=== PATIENT | female | born 1955 | race Asian ===

== ENCOUNTER 2017-03-10 23:29 | Inpatient (IN) | payer BC ==
[~2017-03-10] VITALS: Ht 152.4 cm; Wt 54.9 kg
--- NOTE | ~2017-03-10 | ER ---
PATIENT'S NAME: [facility] AGE: 61 Y [address] ROOM: [place] [address] LOCATION: [facility] ADMIT DATE: 03/10/2017 ER/Outpatient Report DISCHARGE DATE: FAMILY PHYSICIAN: Physician, Unknown ATTENDING PHYSICIAN: Scott Knox Admission date and time documented on the medical record. I saw the patient at 2335 hours. CHIEF COMPLAINT: Shortness of breath, nausea, vomiting, poorly responsive. HISTORY OF PRESENT ILLNESS: This patient is a 61-year-old female who was brought to the emergency room by physics technical officer car, was unresponsive on arrival. Questionable whether she had lost her respirations. Her O2 sats initially were 89, but came up to the mid 90s on room air. Blood pressure was stable at 155/62, her pulse was in the low 70s. She was breathing easily, having no respiratory distress. According to the person who brought her in is that she went to the bathroom, had an episode of nausea, vomiting, and became short of breath and poorly responsive and then was just brought in to the emergency department for evaluation. The patient just got back from [facility]. She had about a 15-hour plane ride. She had no problems through the day until this evening. No recent coughs, colds, flu, fever, chills, or sweats. The patient does have a history of systemic lupus, fibromyalgia. No history of CVA, TIA, seizure disorder, or any neurological changes. No endocrine problems. No known psych issues. No history of suicidal ideation or suicide attempts. No history of overdose. Unable to get much information from the patient, although she did say that she had lupus. She did open her eyes, did wiggle her toes, move her legs, move both arms, squeeze my finger with both hands, so she followed commands. Answered some questions. Very lethargic. HOME MEDICATIONS: See attached medication list. ALLERGIES: SULFA. SOCIAL HISTORY: Nonsmoker, nondrinker. SIGNIFICANT PAST MEDICAL HISTORY: Fibromyalgia, lupus. OPERATIONS: [facility] 61 Y [address] ROOM: [place] [address] LOCATION: ED ADMIT DATE: 03/10/2017 ER/Outpatient Report DISCHARGE DATE: FAMILY PHYSICIAN: Physician, Unknown ATTENDING PHYSICIAN: Scott Knox Unknown. REVIEW OF SYSTEMS: Unable to get review of systems from the patient because of her poor responsiveness. PHYSICAL EXAMINATION: VITAL SIGNS: Temperature 96.9, tympanic, pulse 71, respirations 10, blood pressure 155/62, O2 saturation on room air is 89% to 95%. HEENT: Head: Normocephalic. No abrasion, contusion, laceration, swelling of the scalp or face. Eyes: Pupils are equal, reactive. Not glazed over. Bright when you open her eyelids and looks like she is actually seeing you when you look into her eyes. Ears: Clear TMs bilaterally. Nose: Clear. Throat: Clear. NECK: Negative. LUNGS: Clear. HEART: Regular. ABDOMEN: Soft. I did not elicit any tenderness to palpation. Bowel tones were active. No organomegaly or abnormal mass palpable. No CVA tenderness. EXTREMITIES: Without peripheral edema, cyanosis, or deformity. NEURO: The patient does awaken to stimuli. Does follow commands. No lateralizing changes or deficits. Very lethargic. Does not appear to be toxic. SKIN: Clear. EMERGENCY DEPARTMENT COURSE: I did start the patient on IV normal saline, fluids. Did give her Zofran for nausea. The patient did have several episodes of nausea with vomiting. LABORATORY DATA: Urinalysis was negative. Urine drug screen was positive for THC, marijuana. EKG showed sinus rhythm. No acute ST elevation, ischemic change, or arrhythmia. Medical blood alcohol is less than 0.01. Acetaminophen, salicylate serum levels were both normal. White count was 9400, 45 segs, 45 lymphocytes, 8 monos, 2 eos. Hemoglobin was 12.8, hematocrit 38.5, platelet count is 169,000. Sed rate is normal at 16. PTT was 24. Pro-time is 11 with an INR 1.05. Procalcitonin was less than 0.05. Lactate was 1.9. Arterial blood gases on room air showed a pH of 7.31, pCO2 of 50, PO2 of 84, with an O2 saturation of 95%. D-dimer was elevated at 1.35. Magnesium was 1.8. CPK was 61. Ffnhi-fh-pfxn cardiac enzymes were normal. CRP was less than 0.29. Thyroid tests were normal. ProBNP was 232. CMS was normal except for a low potassium of 3.1. Elevated glucose at 205. PATIENT'S NAME: LAVERN DUPREE [facility] AGE: 61 Y [address] ROOM: [place], [place] [address] LOCATION: [facility] ADMIT DATE: 03/10/2017 ER/Outpatient Report DISCHARGE DATE: FAMILY PHYSICIAN: Physician, Unknown ATTENDING PHYSICIAN: Scott Knox Chest x-ray showed no acute infiltrate or changes. Did do a CT scan of the chest with PE protocol because of an elevated D-dimer. There was no evidence of pulmonary emboli. IMPRESSION: 1. Extreme lethargy, poor responsiveness, altered mental status. Etiology undetermined. 2. Nausea and vomiting with questionable abdominal distress. Etiology uncertain. 3. Positive urine drug screen for marijuana. 4. History of systemic lupus. 5. History of fibromyalgia. 6. Elevated glucose at 205, unknown whether the patient does have diabetes. PLAN: I did discuss the patient with Dr. Falcon, hospitalist. Dr. Falcon did come to the emergency room to evaluate the patient. We will admit the patient to the hospital for further evaluation and treatment. MD HOMERO MUNIZ/marcelino /[id number] d: 03/11/17 0406 t: 03/26/17 1826, OUTPATIENT REPORT
--- NOTE | ~2017-03-10 | HP ---
PATIENT'S NAME: JOON [facility] AGE: 61 Y [address] ROOM: [place] [address] LOCATION: ED ADMIT DATE: 03/10/2017 History & Physical DISCHARGE DATE: FAMILY PHYSICIAN: Physician, Unknown ATTENDING PHYSICIAN: Scott Knox DATE OF SERVICE: CHIEF COMPLAINT: Nausea, vomiting, diarrhea, and altered mental status. History provided entirely by the patient's as well as ER practitioner. HISTORY OF PRESENT ILLNESS: This is a 61-year-old female who carries a past medical history of lupus, on immunosuppressants. She and her got back from [facility] approximately 48-72 hours ago. This was a 60-hour journey. The patient did relatively well during the trip and for the next 2 days at home. However, yesterday approximately midnight developed sudden onset of nausea, vomiting, runny diarrhea, and progressively altered mental status. The reports that aside from that she has also complained of some shortness of breath. No chest pain. No diaphoresis. In the ER, the patient has been considerably altered though. She does respond to some commands, opens her eyes to commands, but then closes them and goes back to sleep. She has been having multiple episodes of emesis which have not been controlled with Zofran. REVIEW OF SYSTEMS: All systems have been reviewed and negative aside from pertinent positives mentioned above. PAST MEDICAL HISTORY: As reported by the is significant for lupus diagnosed in 2012. I also see amlodipine in the patient's medical regimen, so I assume she probably has hypertension as well. SURGICAL HISTORY: denies. FAMILY HISTORY: unable to provide. SOCIAL HISTORY: PATIENT'S NAME: JOON [facility] AGE: 61 Y [address] ROOM: [place] [address] LOCATION: ED ADMIT DATE: 03/10/2017 History & Physical DISCHARGE DATE: FAMILY PHYSICIAN: Physician, Unknown ATTENDING PHYSICIAN: Scott Knox This was closely elicited based on the fact that the patient's urine tox came back positive for THC. The patient's categorically denies drug, tobacco, or alcohol use. He reports nobody else was sick in [facility] or en route. PHYSICAL EXAMINATION: VITAL SIGNS: Blood pressure of 160/80, heart rate in the 80s, saturating 100% on room air, respirations of 16, and the patient has a temperature 96.9. GENERAL APPEARANCE: A well-developed, well-nourished [place] woman of a considerably younger age than stated. NEUROLOGIC: A detailed neurological exam cannot be conducted though the patient seems to have preserved strength and sensation in all extremities. She does open her eyes to voice and apparently tries to follow commands. Eyes: Pupils are equal and reactive to light. LYMPHATIC: No cervical lymphadenopathy. ENDOCRINE: No thyromegaly. LUNG: Clear to auscultation. HEART: Rate is regular. No appreciable murmurs, gallops, or rubs. ABDOMEN: Soft, nontender, and nondistended. : No costovertebral angle tenderness. VASCULAR: 2+ pedal pulses. MUSCULOSKELETAL: Appears unremarkable. PSYCHIATRIC: Cannot be conducted due to her encephalopathy. DIAGNOSTIC DATA: Studies in the ER significant for lactate of 1.9. Potassium 3.1. Two sets of negative cardiac enzymes. ProBNP of 232. Negative Tylenol. Negative salicylate. Normal TSH. Normal B12. Unremarkable CBC without a band shift. Normal INR. Negative procalcitonin. D-dimer of 1.35. Unremarkable urinalysis. Urine tox positive for THC. CT of pulmonary artery was reported to me as unremarkable. ASSESSMENT AND PLAN: This is a 61-year-old female who is being admitted with, 1. Likely gastroenteritis and metabolic encephalopathy. We will admit the patient to the hospital observation. We will provide her with aggressive hydration. We will provide her with antiemetics and PPIs. If vomiting continues, we might have to put down an NG tube. We will send stool for cultures and treat empirically with Cipro and Flagyl. We will consider rifaximin if she wakes up and able to take oral intake. 2. History to lupus. We will continue her on her oral medications when she wakes up. 3. Urine tox positive for THC. At this point, I do not believe that this is contributing to her presentation though we will consider an alternate etiology for her presentation if she fails to improve with the above PATIENT'S NAME: LAVERN DUPREE [facility] AGE: 61 Y [address] ROOM: [place] [address] LOCATION: [facility] ADMIT DATE: 03/10/2017 History & Physical DISCHARGE DATE: FAMILY PHYSICIAN: Physician, Unknown ATTENDING PHYSICIAN: Scott Knox 4. Deep venous thrombosis prophylaxis will be instituted if the patient stays in the hospital for more than 48 hours. Additional management will depend on clinical course. Time dedicated to this the patient's encounter is 35 minutes. MD MARGOTH FELDMAN/marcelino /[id number] D: 319 T: 344 HISTORY & PHYSICAL
--- NOTE | ~2017-03-10 | DS ---
PATIENT'S NAME: SOILA DUPREE [facility] AGE: 61 Y [address] ROOM: [id number] [place], [place] [address] [place] [facility] [place] ADMIT DATE: 03/11/2017 Discharge Summary DISCHARGE DATE: 03/13/2017 FAMILY PHYSICIAN: Ariana Castillo MD ATTENDING PHYSICIAN: Ariana Castillo PRINCIPAL DIAGNOSES: 1. Gastroenteritis with metabolic encephalopathy. 2. Dehydration. 3. Lupus. 4. Drug test positive for THC. 5. Hypertension. 6. Chronic fatigue. 7. Electrolyte disorder, corrected. SUMMARY: Soila was admitted by Dr. Falcon on 03/11/2017 and admitted to the Hospitalist Service. They then discovered that I was her family physician and contacted me and I assumed care. She was hydrated with IV fluids. Her mental status was watched closely. She was started on IV Zofran, Cipro, and Flagyl for empiric coverage of different types of colitis. She had improvement over the next 2 days and was able to be up, much more arousable, much more normal as far as her mental status, still exhausted. She has continued to have nausea and did not eat or drink very much at all on . On 03/13/2017, she was tolerating liquids and was able to get up with assistance. Her potassium was quite low and was replaced IV and then orally. PT and OT were consulted, she did receive DVT prophylaxis. As of the afternoon of 03/13/2017, she was improved, and ready to be dismissed. DISMISSAL: Soila is dismissed on 03/13/2017 in improved condition. DISMISSAL MEDICATIONS: 1. Zolpidem 5 mg at h.s. p.r.n. insomnia. 2. Amlodipine 5 mg at h.s. 3. Azathioprine 50 mg daily. 4. Diphenhydramine 25 mg every 6 hours as needed for hives. 5. Biotin 5 mg daily. 6. Calcium carbonate plus vitamin D 1 tablet b.i.d. 7. Duloxetine 60 mg at h.s. 8. Desonide cream b.i.d. p.r.n. rash. 9. [place]-3 one capsule daily. 10. Hydroxychloroquine sulfate 200 mg at h.s. 11. Alphagan 1 drop twice daily. 12. Losartan 100 mg a day. 13. Multivitamin daily. 14. Pantoprazole 40 mg b.i.d. PATIENT'S NAME: SOILA DUPREE [facility] AGE: 61 Y [address] ROOM: [address] [address] [place] [facility] [place] ADMIT DATE: 03/11/2017 Discharge Summary DISCHARGE DATE: 03/13/2017 FAMILY PHYSICIAN: Ariana Castillo MD ATTENDING PHYSICIAN: Ariana Castillo 15. Prednisone 1 mg daily. 16. PreserVision 1 tablet twice a day. 17. Singulair 10 mg at h.s. 18. Albuterol HFA 2 puffs q.4 h. p.r.n. 19. Xalatan eyedrops at h.s. 20. Restasis eyedrops b.i.d. 21. Zofran 4 mg every 4 hours as needed for nausea. DIET: Her diet will be as tolerated. ACTIVITY: As tolerated. FOLLOW UP: She will follow up with me on 03/20/2017, at 9:30 in the morning. She will let me know sooner if any problems. PROGNOSIS: Fair. MD YOGI CHAUHAN/marcelino /[id number] d: 03/20/17316 t: 03/25/17 1733, DISCHARGE SUMMARY
[~2017-03-10 23:29] MED LIST: ALPHAGAN 05 ML/1 BOT OPHTH; AMBIEN5 MG PO; AZATHIOPRINE50 MG PO; BENADRYL25 MG PO; BIOTIN5 M1 PO; CALCIUM 600 +1 EAC3 PO; COZAAR100 MG PO; CYMBALTA60 MG PO; DELTASONE1 MG PO; DESOWEN 0.05%15 GM TOP; DULERA 100 MCG/51 EA INH; EPIPEN0.3 MG IM; FISH OIL 1,0001 EAC4 PO; NORVASC10 MG PO; PLAQUENIL200 MG PO; PRESERVISION A1 EAC2 PO; PROAIR HFA8.5 GM INH; PROTONIX40 MG PO; SINGULAIR10 MG PO; THERAGRAN-M1 TAB PO; VITAMIN D-32000 UNI1 PO; XALATAN2.5 ML OPHTH; ZOFRAN4 M1 PO
[2017-03-10 23:54] LABS: BASOPHIL % 0.4 %; EOSINOPHIL # 0.2 K/uL (0.0-0.5); EOSINOPHIL % 1.6 %; HEMATOCRIT 38.5 % (33.0-46.0); HEMOGLOBIN 12.8 g/dL (10.0-15.0); IMMATURE GRANULOCYTE % 0.4 %; LYMPHOCYTE # 4.3 K/uL (0.8-4.0); LYMPHOCYTE % 45.4 %; MCH 29.4 pg (27.0-34.0); MCHC 33.2 gm/dL (32.0-36.5); MCV 88.3 fl (83.0-98.0); MONOCYTE # 0.7 K/uL (0.0-1.0); MONOCYTE % 7.7 %; NEUTROPHIL # (ANC) 4.2 K/uL (1.8-7.8); NEUTROPHIL % 44.5 %; NRBC % 0 /100WBC (0-0.00); PLATELET COUNT 169 K/uL (150-450); RBC 4.36 M/uL (3.50-5.50); RDW-CV 12.4 % (11.9-14.6); WBC 9.4 K/uL (4.0-11.0)
[2017-03-10 23:59] LABS: BILIRUBIN URINE NEGATIVE (NEGATIVE); BLOOD URINE NEGATIVE /UL (NEGATIVE); COLOR URINE YELLOW (YELLOW); GLUCOSE URINE NEGATIVE (NEGATIVE); KETONE URINE NEGATIVE (NEGATIVE); LEUKOCYTES URINE NEGATIVE /UL (NEGATIVE); NITRITE URINE NEGATIVE (NEGATIVE); PROTEIN URINE NEGATIVE (NEGATIVE); TURBIDITY URINE CLEAR (CLEAR); UROBILINOGEN URINE NORMAL (NORMAL)
[2017-03-11 00:02] LABS: INR - (THERAPEUTIC) 1.05 (0.92-1.07); PTT 24 SECONDS (25-32)
[2017-03-11 00:03] LABS: BICARBONATE 25.2 mmol/L (18.0-23.0); LACTATE 1.9 mEq/L (0.50-1.60); PCO2 50 mmHg (35-45); PO2 84 mmHg (80-90)
[2017-03-11 00:10] LABS: ALBUMIN 3.5 gm/dL (3.5-5.0); ALK PHOS 72 IU/L (33-138); ALT 27 IU/L (12-78); ANION GAP 14.1 (10.0-19.0); AST 20 IU/L (10-40); BLOOD UREA NITROGEN 17 mg/dL (6-24); CALCIUM 8.5 mg/dL (8.5-10.5); CHLORIDE 104 mMol/L (96-110); CO2 25 mMol/L (22-32); CPK 61 IU/L (21-215); CREATININE 0.9 mg/dL (0.5-1.1); ESTIMATED GFR (MDRD EQUATION) > 60; MAGNESIUM 1.8 mg/dL (1.8-2.6); POTASSIUM 3.1 mMol/L (3.7-5.1); SODIUM 140 mMol/L (135-145); TOTAL BILIRUBIN 0.3 mg/dL (0.0-1.5); TOTAL PROTEIN 7.8 g/dL (6.0-8.4)
[2017-03-11 02:25] LABS: AMPHETAMINE NEGATIVE (NEGATIVE); BARBITURATE NEGATIVE (NEGATIVE); COCAINE NEGATIVE (NEGATIVE); OPIATES NEGATIVE (NEGATIVE)
--- NOTE | 2017-03-11 05:22 | NUR ---
52 year old descent female admitted for gastroenteritis on observation status. VSS. RA. Given Cipro and Flagyl in ED. Pt. lethargic and history obtained from spouse at bedside. Pt and spouse have been in [facility] for a month and just returned yesterday to [place]. Pt. started becoming nauseated and vomitting. She was carried into ER by son as pt. could not walk. Pt. does speak [place]. History of Lupus, Fibromyalgia, HTN. Initial ABG showed respiratory acidosis. Tested + for marijuana in urine. Increased D-Dimer. L) 18G IV to wrist with fluids at 100ml.
[2017-03-11] MEDS ORDERED: RESTASIS1 EACH OPHTH (08:20)
[2017-03-11] MEDS ORDERED: XALATAN2.5 ML OPHTH (08:20)
[2017-03-11 09:39] LABS: BARBITURATE NEGATIVE (NEGATIVE); COCAINE NEGATIVE (NEGATIVE); OPIATES NEGATIVE (NEGATIVE)
[2017-03-11 09:47] LABS: AMPHETAMINE NEGATIVE (NEGATIVE)
--- NOTE | 2017-03-11 11:47 | NUR ---
Attempted visit, no family in room and pt sleeping. Vp Patient will follow and assist with dc planning as needs identified.
--- NOTE | 2017-03-11 14:50 | NUR ---
Significant event: Patient is alert and oriented. VSS on room air. No fevers this shift. Has had no vomiting, though did feel nauseated, given Zofran at 1200, with some relief noted. Is very sleepy, wakes easily, and answers questions appropriately. Does not like to open eyes much. Has ambulated x2 to the [facility] and voiding well. No BM this shift, do need one for stool culture. Pneumatics not on patient due to elevated D-Dimer. Has tolerated sprite, refuses to eat solid food, offered jello, broth, popsicle, refuses all at this time. Have used 2 person assist with ambulation due to her being weak. Cooperative with cares.
--- NOTE | 2017-03-12 04:41 | NUR ---
Significant Event:pt is a/o x3. pt states she feels very weak and tends to keep her eyes closed but will open them at request. pt is a 1 assist to bathroom. pt got nauseous , consuelofrangella given @ 6585. iv to l wrist has NS w/ 20kcl @ 100ml/hr. intermittent abx. Still need a stool sample. vss afebrile Follow up:continue to monitor.
[2017-03-12 05:17] LABS: BASOPHIL % 0.5 %; EOSINOPHIL % 0.7 %; HEMATOCRIT 32.8 % (33.0-46.0); HEMOGLOBIN 10.7 g/dL (10.0-15.0); IMMATURE GRANULOCYTE % 0.2 %; LYMPHOCYTE # 1.2 K/uL (0.8-4.0); LYMPHOCYTE % 26.8 %; MCH 29.3 pg (27.0-34.0); MCHC 32.6 gm/dL (32.0-36.5); MCV 89.9 fl (83.0-98.0); MONOCYTE # 0.3 K/uL (0.0-1.0); MONOCYTE % 7.3 %; MPV 11.8 fl (9.4-12.4); NEUTROPHIL # (ANC) 2.8 K/uL (1.8-7.8); NEUTROPHIL % 64.5 %; NRBC % 0 /100WBC (0-0.00); PLATELET COUNT 99 K/uL (150-450); RBC 3.65 M/uL (3.50-5.50); WBC 4.4 K/uL (4.0-11.0)
[2017-03-12 05:32] LABS: ANION GAP 10.6 (10.0-19.0); BLOOD UREA NITROGEN 6 mg/dL (6-24); CALCIUM 8.2 mg/dL (8.5-10.5); CHLORIDE 114 mMol/L (96-110); CO2 26 mMol/L (22-32); CREATININE 0.8 mg/dL (0.5-1.1); ESTIMATED GFR (MDRD EQUATION) > 60; POTASSIUM 3.6 mMol/L (3.7-5.1); SODIUM 147 mMol/L (135-145)
--- NOTE | 2017-03-12 11:40 | NUR ---
Introduced self and role of care management to patient's as she is sleeping. They live in [place]. He states that she is able to do all her own ADL's. He will be available to assist as needed. He plans on her returning home on discharge. He denies any needs at this time. Will continue to follow.
--- NOTE | 2017-03-12 16:22 | NUR ---
Significant event: Patient is alert and oriented. VSS. on room air. Pt is doing better today, worked with PT/OT and sat up in chair awhile. Ambulates with one assist, voiding well. NO BM this shift. IV to left wrist with good blood return. Zofran given x2 last being at 1615. Encouraged to drink as much as possible, dr wants at least 1 liter a day. Likes Sprite. Did eat a few crackers with no vomiting. Did have bag bath today. NO complaints of pain, no fever. Cooperative with cares.
--- NOTE | 2017-03-13 04:06 | NUR ---
Significant Event:pt is a/o x3. pt is a 1 assist. pt had issues w/ n/v got zofran order changed to q 4hrs prn. zofran last given 2149. iv to l wrist has fluids running, iv abx are not compatable, pause main fluids while abx are running on different channel. no stools this shift still need stool sample. Follow up:stool sample
[2017-03-13 05:07] LABS: BASOPHIL % 0.5 %; EOSINOPHIL # 0.1 K/uL (0.0-0.5); EOSINOPHIL % 1.1 %; HEMATOCRIT 34.6 % (33.0-46.0); HEMOGLOBIN 11.4 g/dL (10.0-15.0); IMMATURE GRANULOCYTE % 0.5 %; LYMPHOCYTE # 1.8 K/uL (0.8-4.0); LYMPHOCYTE % 41.8 %; MCH 29.2 pg (27.0-34.0); MCHC 32.9 gm/dL (32.0-36.5); MCV 88.7 fl (83.0-98.0); MONOCYTE # 0.4 K/uL (0.0-1.0); MONOCYTE % 8.9 %; MPV 11.8 fl (9.4-12.4); NEUTROPHIL # (ANC) 2.1 K/uL (1.8-7.8); NEUTROPHIL % 47.2 %; NRBC % 0 /100WBC (0-0.00); PLATELET COUNT 108 K/uL (150-450); RDW-CV 12.9 % (11.9-14.6); WBC 4.4 K/uL (4.0-11.0)
[2017-03-13 05:22] LABS: ANION GAP 9.4 (10.0-19.0); BLOOD UREA NITROGEN 5 mg/dL (6-24); CALCIUM 8.4 mg/dL (8.5-10.5); CHLORIDE 109 mMol/L (96-110); CO2 28 mMol/L (22-32); CREATININE 0.8 mg/dL (0.5-1.1); ESTIMATED GFR (MDRD EQUATION) > 60; POTASSIUM 3.4 mMol/L (3.7-5.1); SODIUM 143 mMol/L (135-145)
--- NOTE | 2017-03-13 14:49 | NUR ---
Significant event: Patient is alert and oriented. VSS. On room air. IV to left wrist, with fluids running. Zofran po ordered and given at 1130. Complains of itching all over, noted redness and hives to bilateral inner thighs. Pt states she takes benadryl at home for this, order received for this. Given 2 caps benadryl at 1340. No vomiting today, no stools. Did eat applesauce this morning with meds. Have encouraged to drink and a varitey of things offered, but pt refuses. Is 1 assist with ambulation. Cooperative with cares.
[2017-03-13] MEDS ORDERED: ZOFRAN ODT4 MG SL (16:49)
== END 2017-03-13 17:55 | disposition disaster alternative care site (69) | DRG 391 ==
LOC: GMED 23:29 → GMSU 03-11 03:32
PROVIDERS: Emergency Medicine; Family Medicine; Physician Assistant; ADMIT Internal Medicine
DX: A08.4 Viral intestinal infection, unspecified (principal); G93.41 Metabolic encephalopathy; E87.2 Acidosis; E87.0 Hyperosmolality and hypernatremia; M32.9 Systemic lupus erythematosus, unspecified; E86.0 Dehydration; E87.6 Hypokalemia; I10 Essential (primary) hypertension; M79.7 Fibromyalgia; K52.9 Noninfective gastroenteritis and colitis, unspecified
CPT/HCPCS: C9113; G0480; J0744; J1650; J2405; J3480; J7030; J7050; J7500; Q9967